=== PATIENT | female | born 1965 | race Caucasian/White ===

== ENCOUNTER 2017-08-25 11:27 | Outpatient (CLI) | payer MEDICARE ==
--- NOTE | 2017-08-25 12:59 | RAD ---
FOUR VIEWS RIGHT KNEE: Comparison: None. History: Right knee pain after injury in 1993. FINDINGS: Four views of the right knee shows no evidence of acute fracture or dislocation. Moderate tricompartm ental osteophytes are seen consistent with osteoarthritis. No knee effusion is seen. Mild diffuse sof t tissue swelling is seen. IMPRESSION: Moderate right knee osteoarthritis without acute osseous abnormality. POS: [facility]
== END 2017-08-25 11:28 | disposition home or self-care (01) ==
LOC: MADRAD 11:27
PROVIDERS: ATTEND Family Medicine
DX: M25.561 Pain in right knee (principal); M17.11 Unilateral primary osteoarthritis, right knee

== ENCOUNTER 2017-11-10 13:05 | Emergency (ER) | payer MEDICARE ==
[~2017-11-10 13:05] MED LIST: Sodium Chloride 0.9% 100 ML BAG ONE
[2017-11-10] MEDS ORDERED: methylPREDNISolone Sod Succ/PF 125 MG/2 ML VIAL ONE (13:27)
[2017-11-10 13:47] LABS: #Basophils 0.1 thou/uL (0.0-0.2); #Eosinphils 0.1 thou/uL (0.0-0.7); #Lymphocytes 2.3 thou/uL (1.20-3.40); #Monocytes 0.6 thou/uL (0.11-0.59); #Neutrophils 4.2 thou/uL (1.40-6.50); %Basophils 1.2 % (0.0-1.0); %Eosinophils 1.7 % (0.0-10.0); %Lymphocytes 31.2 % (21.0-51.0); %Neutrophils 57.9 % (42.0-75.0); Hemoglobin 15.7 g/dL (12.0-16.0); Mean Corpuscular HGB CONC 33.2 g/dL (32.0-36.0); Mean Corpuscular Hemoglobin 29.8 pg (27.0-31.0); Mean Corpuscular Volume 89.9 fL (78.0-98.0); Mean Platelet Volume 5.8 fL (7.4-10.4); Platelet Count 346 thou/uL (130-400); RBC Distribution Width 11.3 % (11.5-14.5); Red Blood Cell (RBC) Count 5.28 mill/uL (4.20-5.40); White Blood Cell (WBC) Count 7.2 thou/uL (4.8-10.8)
[2017-11-10 13:58] LABS: Anion Gap 18 mmol/L (10-20); BUN (Urea Nitrogen) 6 mg/dL (7.0-18.7); Calc. Creatinine Clearance 0 mL/min (70-130); Calcium 9.7 mg/dL (7.8-10.44); Carbon Dioxide 21 mmol/L (22-29); Chloride 101 mmol/L (98-107); Estimated GFR-MDRD 84; Glucose 106 mg/dL (70-105); Sodium 136 mmol/L (136-145)
--- NOTE | 2017-11-10 14:16 | RAD ---
TWO VIEW CHEST SERIES: INDICATIONS: Cough. FINDINGS: Bibasilar patchy densities are present. The cardiac silhouette is prominent. IMPRESSION: Bibasilar patchy densities, which may be on the basis of atelectasis or pneumonia. Correlate clinica lly. As necessary, follow-up imaging may be obtained. POS: [facility]
[2017-11-10] MEDS ORDERED: Azithromycin 500 MG VIAL ONE (14:27)
[2017-11-10] MEDS ORDERED: cefTRIAXone\\ROCEPHIN 2 GM VIAL ONE (14:27)
== END 2017-11-10 15:29 | disposition short-term general hospital (02) ==
LOC: MADERS 13:05
DX: J18.9 Pneumonia, unspecified organism (principal); J44.9 Chronic obstructive pulmonary disease, unspecified; I10 Essential (primary) hypertension; R09.2 Respiratory arrest; F41.9 Anxiety disorder, unspecified; F17.200 Nicotine dependence, unspecified, uncomplicated; Z79.899 Other long term (current) drug therapy
CPT/HCPCS: 36415; 71046; 80048; 83605; 85025; 87040; 94640; 94760; 96365; 96367; 96375; J0456; J0696; J2930; J7050; J7620